=== PATIENT | female | born 1965 | race Caucasian/White ===

== ENCOUNTER 2017-01-22 21:34 | Emergency (ER) | payer OTHER ==
[2017-01-22 21:58] LABS: BASOPHILS 0.1 % (0.0-2.0); EOSINOPHILS 2.1 % (0-7); HEMATOCRIT 40.3 % (36.0-48.0); HEMOGLOBIN 13.3 g/dL (12-16); IMMATURE GRANULOCYTES 0.3 % (0-5); LYMPHOCYTES 18.8 % (15-50); MCH 29.7 pg (26.0-34.0); MEAN PLATELET VOLUME 10.9 fL (7.4-10.4); MONOCYTES 9.1 % (2-11); NEUTROPHILS 69.6 % (40-80); PLATELET COUNT 203 10x3/uL (130-400); RBC 4.48 10x6/uL (4.00-5.40); RDW 13.5 % (11.5-14.5)
[2017-01-22 22:11] LABS: APPEARANCE CLEAR (CLEAR); BILIRUBIN NEGATIVE (NEGATIVE); COLOR YELLOW (YELLOW); GLUCOSE NEGATIVE (NEGATIVE); KETONE NEGATIVE (NEGATIVE); LEUKOCYTE ESTERASE NEGATIVE (NEGATIVE); NITRITE NEGATIVE (NEGATIVE); PROTEIN NEGATIVE (NEGATIVE); UROBILINOGEN NORMAL (NORMAL)
[2017-01-22 22:22] LABS: ALBUMIN 3.7 g/dL (3.4-5.0); ANION GAP 13.5 mmol/L (8-16); BILIRUBIN - TOTAL 0.34 mg/dL (0.2-1.3); CARBON DIOXIDE 28.2 mmol/L (21.0-32.0); CREATININE - SERUM 0.9 mg/dL (0.6-1.3); POTASSIUM - SERUM 3.7 mmol/L (3.5-5.1); PROTEIN - SERUM 7.2 g/dL (6.4-8.2)
[2017-01-23 16:29] VITALS: BMI 31.1
== END 2017-01-23 01:17 | disposition home or self-care (01) ==
LOC: D.ER 21:34
PROVIDERS: Emergency Medicine
DX: K52.9 Noninfective gastroenteritis and colitis, unspecified (principal); F17.200 Nicotine dependence, unspecified, uncomplicated

== ENCOUNTER 2017-01-23 10:42 | Day surgery (SDC) | payer OTHER ==
[2017-01-23] VITALS (10 sets, daily range): BP systolic 107–133; BP diastolic 67–77; BMI 31.1
[2017-01-23 11:17] LABS: BASOPHILS 0.2 % (0.0-2.0); EOSINOPHILS 1.3 % (0-7); HEMATOCRIT 43.1 % (36.0-48.0); HEMOGLOBIN 14.1 g/dL (12-16); IMMATURE GRANULOCYTES 0.3 % (0-5); LYMPHOCYTES 23.1 % (15-50); MCH 30.1 pg (26.0-34.0); MCHC 32.7 g/dL (31.0-37.0); MCV 91.9 fL (80.0-100.0); MEAN PLATELET VOLUME 11.7 fL (7.4-10.4); MONOCYTES 9.2 % (2-11); NEUTROPHILS 65.9 % (40-80); PLATELET COUNT 206 10x3/uL (130-400); RBC 4.69 10x6/uL (4.00-5.40); RDW 13.6 % (11.5-14.5); WBC 12.4 10x3/uL (4.8-10.8)
[2017-01-23 11:39] LABS: BILIRUBIN - TOTAL 0.58 mg/dL (0.2-1.3); CARBON DIOXIDE 29.7 mmol/L (21.0-32.0); CREATININE - SERUM 0.9 mg/dL (0.6-1.3); POTASSIUM - SERUM 3.7 mmol/L (3.5-5.1); PROTEIN - SERUM 7.5 g/dL (6.4-8.2)
[2017-01-24 04:00] VITALS: BP 106/64
[2017-01-24 05:51] LABS: BASOPHILS 0.1 % (0.0-2.0); EOSINOPHILS 0 % (0-7); HEMATOCRIT 37.2 % (36.0-48.0); HEMOGLOBIN 11.9 g/dL (12-16); IMMATURE GRANULOCYTES 0.2 % (0-5); LYMPHOCYTES 10.5 % (15-50); MCH 29.5 pg (26.0-34.0); MCV 92.1 fL (80.0-100.0); MEAN PLATELET VOLUME 11.5 fL (7.4-10.4); MONOCYTES 9.7 % (2-11); NEUTROPHILS 79.5 % (40-80); PLATELET COUNT 193 10x3/uL (130-400); RBC 4.04 10x6/uL (4.00-5.40); RDW 13.6 % (11.5-14.5)
[2017-01-24 06:07] LABS: ALBUMIN 3.1 g/dL (3.4-5.0); ALKALINE PHOSPHATASE 49 U/L (46-116); ALT (SGPT) 18 U/L (10-68); BILIRUBIN - TOTAL 0.49 mg/dL (0.2-1.3); CALC OSMOLALITY 285 mosm/kg (275-300); CALCIUM 7.6 mg/dL (8.5-10.1); CARBON DIOXIDE 27.1 mmol/L (21.0-32.0); CHLORIDE - SERUM 107 mmol/L (98-107); CREATININE - SERUM 0.8 mg/dL (0.6-1.3); GLUCOSE 138 mg/dL (74-106); MAGNESIUM - SERUM 2.1 mg/dL (1.8-2.4); PHOSPHOROUS 3.3 mg/dL (2.5-4.9); PROTEIN - SERUM 5.9 g/dL (6.4-8.2); SODIUM 142 mmol/L (136-145); UREA NITROGEN 15 mg/dL (7-18); eGFR NON AFRICAN AMERICAN 80 mL/min (90-120)
[2017-01-24 06:08] LABS: POTASSIUM - SERUM 4.4 mmol/L (3.5-5.1)
[2017-01-24 08:59] VITALS: BP 97/59
--- NOTE | 2017-01-24 09:10 | NUR ---
AWAKE AND ALERT. ORIENTED X3. REPORTS PAIN WELL MANAGED WITH USE OF HEAD OF TRAINING AND DEVELOPMENT. LUNG HAVE CRACKLES NOTED TO RIGHT SIDE, OCCASSIONAL DRY COUGH NOTED. SKIN IS INTACT WITHOUT REDNESS EXCEPT 4 SMALL INSERTION SITES TO ABDOMEN WHICH ARE CLEAN AND DRY. ENCOURAGED TO BE OOB MUCH POSSIBLE. IV TO LEFT FOREARM IS PATENT WITHOUT REDNESS AT INSERTION SITE.
--- NOTE | 2017-01-24 11:00 | NUR ---
AMBULATED IN HALLWAY WITH . NO C/O AT THIS TIME. DR. JOSUE HERE WITH ORDERS TO D/C HOME LATER TODAY IF PATINET OK TO GO. WILL MONITOR.
[2017-01-24 13:09] VITALS: BP 113/67
[2017-01-24 17:30] VITALS: BP 104/63
--- NOTE | 2017-01-24 18:37 | NUR ---
WALKED ALL THE WAY AROUND THE NURSE'S STATION WITH . ATE ALL OF CLEAR LIQUID SUPPER. NO CHANGES NOTED. DENIES NEEDS.
[2017-01-25] VITALS: BP 99/67
[2017-01-25 08:00] VITALS: BP 124/80
--- NOTE | 2017-01-25 08:43 | NUR ---
AWAKE AND ALERT. ORIENTED X3. NO C/O AT THIS TIME. REPORTS PAIN IMPROVED TODAY. LUNGS HAVE FAINT CRACKLES IN LOWER LOBES. OCCASSIONAL DRY COUGH NOTED. SKIN IS INTACT WITHOUT REDNESS EXCEPT 4 SMALL INSERTION SITES TO ABDOMEN WHICH HAVE DRY DRESSINGS IN PLACE. IV TO RIGHT HAND IS PATENT WITHOUT REDNESS AT INSERTION SITE.
[2017-01-25] MEDS ORDERED: FLAGYL500 MG PO (08:45)
[2017-01-25] MEDS ORDERED: DILAUDID2 MG PO (08:45)
[2017-01-25] MEDS ORDERED: CIPRO500 MG PO (08:46)
--- NOTE | 2017-01-25 09:20 | NUR ---
DISCHARGED TO HOME AMBULATORY WITH FAMILY. DISCHARGE INSTRUCTIONS GIVEN BOTH VERBALLY AND WRITTEN. ALL QUESTIONS ANSWERED. PATIENT AND FAMILY VERBALLIZED UNDERSTANDING OF SAME. NEEDED PRESCRIPTIONS GIVEN TO PATIENT. IV TO RIGHT HAND D/C WITH CATHETER INTACT.
--- NOTE | 2017-02-28 09:43 | OP ---
PATIENT NAME: YARITZA HANSEN MEDICAL RECORD: [id number] :67 LOCATION:D.OPS ADMISSION DATE: SURGEON: LINUS JOSUE MD DATE OF OPERATION: 01/23/2017 PREOPERATIVE DIAGNOSIS: Acute appendicitis. POSTOPERATIVE DIAGNOSES: Acute retrocecal appendicitis, lengthy, with its tip fused to the undersurface of the liver. Indurated cecum PROCEDURE: Laparoscopic appendectomy. SURGEON: Linus Josue MD ROLLED MATERIALS WORKER: None. BLOOD LOSS: Minimal. ANESTHESIA: General. COMPLICATIONS: None. The risks, possible complications and alternatives to procedure were explained to the patient. She elects to proceed. The discussion specifically included, but was not limited to, bleeding requiring emergency reoperation, infection, as well as an open procedure. OPERATIVE COURSE: The patient was conveyed to the operating room urgently on 01/23/2017. General anesthesia was induced by the anesthesia staff. The abdomen was sterilely prepped and draped. A small skin marcus was accomplished in the left upper quadrant. A Veress needle was inserted through the skin marcus into the peritoneal cavity. CO2 insufflation was begun. Once a sufficient pneumoperitoneum had been achieved, a 5-mm trocar was inserted through the Optiview device in the left lower quadrant. Under direct internal vision utilizing a television camera, a 12-mm trocar was inserted through the incision at the umbilicus. Another 5-mm trocar was inserted through the incision at this time in the right groin. During insertion of the Veress needle and all trocars, there appeared to have been no injury to the bowels, any intraperitoneal or retroperitoneal structures. The appendix was identified. It was retrocecal. Appendiceal adhesions to the retroperitoneum were taken down with the Harmonic scalpel. A window was created in the mesoappendix and I took down the mesoappendix with the Harmonic scalpel. I stapled across the tip of the cecum with an Endo-DIANNE type staple utilizing a blue load. I then dissected up and excised what I thought was the entire appendix; however, it was very, very small. It was placed within an Endobag retrieval device and was withdrawn through the umbilical fascia defect. I then continued my dissection and identified that the appendix traveled retrocecal all the way up to the undersurface of the liver where was fused to the undersurface of the liver. The appendix did appear enlarged, it appeared thickened and it was consistent with acute appendicitis. I continued my dissection with the Harmonic scalpel. I ended up dividing the appendix again. It was placed within an Endobag retrieval device and was withdrawn through the umbilical fascia defect. OPERATIVE REPORT [id number] YARITZA HANSEN The 12-mm trocar was replaced and the abdomen reinsufflated. I then excised the remaining portion of the appendix including the tip with the Harmonic scalpel. This was placed within an Endobag retrieval device and was withdrawn through the umbilical fascia defect. I irrigated and aspirated. There was no bleeding even at low pressure of 8. Cherie was added to the mesoappendiceal stump for additional hemostasis. I noted no definite injury to the colon. The ileocecal valve appeared to be intact. The cecum was very indurated. The states the patient has never had a colonoscopy before. After the appendiceal stump heals and perhaps in about 2 months, I am going to request the patient undergo a colonoscopy to rule out a malignancy. Really, we cannot do any kind of diagnostic study such as a barium enema or colonoscopy at this point for fear of blowing out that appendiceal stump. The 12-mm trocar was removed. The Jeffery-Ziggy suture closure device and 0 Vicryl suture was used to close the fascia at the umbilicus. All the trocars were removed and the abdomen desufflated. The skin at the umbilicus was closed with interrupted 4-0 Vicryl Rapide sutures. The other skin incisions were closed with interrupted intracuticular 3-0 Vicryls. Benzoin and Steri-Strips were applied. The patient was then extubated and conveyed to post-anesthesia care unit where she was in stable condition. I am going to continue her on antibiotics for 24 hours. She will require IV narcotic analgesia, so she will be placed in an observation bed. TRANSINT:[id number] Voice Confirmation ID: [id number] DOCUMENT ID: [id number] LINUS JOSUE MD at 0943 CC: [id number] DICTATION DATE: 01/23/171912 PICKING BELT OPERATOR: 01/23/17 [facility] 01/25/17 [facility] [address] [place] [address]
--- NOTE | 2017-02-28 09:43 | HP ---
PATIENT: YARITZA HANSEN MEDICAL RECORD: [id number] ACCOUNT: [id number] LOCATION:[facility] : 67 ADMISSION DATE: 01/23/17 HISTORY AND PHYSICAL EXAMINATION CHIEF COMPLAINT: Pain. HISTORY OF PRESENT ILLNESS: I received a call from Dr. Bryant this morning. He stated that the patient had been in the Emergency Room last evening, underwent a CT scan and it was read out as an infarcted appendix epiploica. No appendicitis. The scan was overread by our radiologist, who felt the patient had appendicitis and it was retrocecal. I have seen and examined the patient. The pain is of recent onset. The patient has had nausea and vomiting. She has also been anorexic. Palpation aggravates. Nothing alleviates. She does have peritonitis to percussion. This is a history and physical addendum. For the typed portion of the history and physical, including the past medical and surgical history, current medications, allergies, as well as social history, please see the chart. REVIEW OF SYSTEMS: Positive for nausea and vomiting. No fever or chills. Positive for abdominal pain. No chest pain, no shortness of breath, no headache. The review of systems is negative other than as is described above. PHYSICAL EXAMINATION: GENERAL: She does appear acutely ill. She does not appear chronically ill. VITAL SIGNS: Reviewed. HEAD: External ears appear normal. EYES: Extraocular movements are intact. NECK: Trachea is midline. CHEST: No intercostal retractions. PULMONARY: Nonlabored, no stridor. ABDOMEN: As described above. EXTREMITIES: No peripheral cyanosis. INTEGUMENT: No rash, no ulcerations. PSYCHIATRIC: Normal affect. NEUROLOGIC: Nonfocal. No lethargy. The patient answers questions appropriately. Moves all extremities well. PSYCHIATRIC: Normal affect. BACK: No thoracic kyphosis. LYMPHATIC: No lymphangitic streaking of the exposed extremities. IMPRESSION: Acute appendicitis. PLAN: Laparoscopic appendectomy, possible open procedure. I have explained to the patient that if the appendix is normal, I would still remove it in order to avoid diagnostic confusion in the future should the patient have a recurrence or persistence of abdominal pain. We specifically discussed the risk of intestinal injury, bleeding requiring an emergency reoperation, as well as right hemicolectomy. TRANSINT:[id number] Voice Confirmation ID: [id number] DOCUMENT ID: [id number] HISTORY AND PHYSICAL [id number] YARITZA HANSEN, LINUS RAMOS at 0943 CC: [id number] DICTATION DATE: 01/23/171906 TOLL TICKET CLERK: 01/23/171955 [facility] 01/25/17 [place] [id number] [place] [id number]
== END 2017-01-25 10:51 | disposition home or self-care (01) ==
LOC: D.OPS 10:42 → D.MS 15:32
PROVIDERS: Emergency Medicine; Surgery
DX: K35.80 Unspecified acute appendicitis (principal); F17.200 Nicotine dependence, unspecified, uncomplicated